=== PATIENT | female | born 1990 | race American Indian/Alaskan Native ===

== ENCOUNTER 2016-12-18 15:36 | Emergency (ER) | payer SELFPAY ==
[2016-12-18 17:21] LABS: Bilirubin,Urine NEG (Negative); Blood,Urine MOD (Negative); Ketones,Urine NEG (Negative); Leukocyte Esterase,Urine MOD (Negative); Mucus,Urine FEW /HPF; Nitrite,Urine NEG (Negative); Urobilinogen,Urine < 2.0 mg/dL (<2.0)
--- NOTE | 2016-12-18 19:49 | Emergency Department Report ---
HPI - General Chief Complaint: Urogenital-Female Time Seen by Provider: 12/18/16 19:21 - HPI HPI: 26-year-old female presents today stating that she has had UTI like symptoms 4 days. Describes her symptoms as increased urinary frequency and urgency, painful urination and blood in urine. Denies any vaginal discharge or vaginal bleeding. Positive for history of UTI, but no recent infection. Positive for minimal back pain. Denies fever, chills, nausea, vomiting, chest pain, shortness of breath, abdominal pain. Patient has taken a couple doses of pyridium without symptomatic relief. ED Past Medical Hx - Past Medical History Hx Diabetes: Yes Additional medical history: ANEMIA - Surgical History Additional Surgical History: X 3 - Social History Smoking Status: Current Every Day Smoker Substance Use Type: None - Medications Home Medications: Home Medications Medication Instructions Recorded Confirmed Last Taken Type Phenazopyridine [Pyridium] 200 mg PO BID #4 tab 12/18/16 Unknown Rx Sulfamethoxazole/Trimethoprim 1 each PO BID #10 tablet 12/18/16 Unknown Rx [Bactrim DS TAB] ED Review of Systems ROS: Stated complaint: UTI Other details as noted in HPI Constitutional: denies: chills, fever, malaise Eyes: denies: eye pain ENT: denies: ear pain, throat pain, congestion Respiratory: denies: cough, shortness of breath, wheezing Cardiovascular: denies: chest pain, palpitations Endocrine: no symptoms reported Gastrointestinal: denies: abdominal pain, nausea, vomiting, diarrhea Genitourinary: urgency, dysuria, frequency, hematuria. denies: discharge Musculoskeletal: back pain Neurological: denies: headache, weakness Physical Exam - Physical Exam Vital Signs: Vital Signs 12/18/16 16:36 Temperature 98.5 F Pulse Rate 78 Respiratory 17 Rate Blood Pressure 137/96 O2 Sat by Pulse 100 Oximetry Physical Exam: GENERAL: The patient is well-developed and well-nourished. Patient is in NAD. HEAD: Normocephalic. Atraumatic. CHEST/LUNGS: Clear to auscultation throughout. HEART/CARDIOVASCULAR: Regular rate and rhythm. No murmurs, rubs or gallops. ABDOMEN: Abdomen is soft. Mild tenderness to palpation in suprapubic region. Bowel sounds normoactive. No guarding or rebound tenderness. I asked if her left-sided CVA tenderness. EXTREMITIES: Peripheral pulses intact. Capillary refill less than 2 seconds. NEURO: Alert and oriented x 3. Normal gait. ED Course Vital Signs 12/18/16 16:36 Temperature 98.5 F Pulse Rate 78 Respiratory 17 Rate Blood Pressure 137/96 O2 Sat by Pulse 100 Oximetry ED Medical Decision Making - Lab Data Vital Signs 12/18/16 16:36 Temperature 98.5 F Pulse Rate 78 Respiratory 17 Rate Blood Pressure 137/96 O2 Sat by Pulse 100 Oximetry Lab Results 12/18/16 12/18/16 Range/Units 16:42 Unknown POC Glucose 97 (70-105) Urine Color Yellow (Yellow) Urine Turbidity Slightly-cloudy (Clear) Urine pH 7.0 (5.0-7.0) Ur Specific [place] 1.024 (1.003-1.030) Urine Protein 100 mg/dl (Negative) mg/dL Urine Glucose (UA) Neg (Negative) mg/dL Urine Ketones Neg (Negative) mg/dL Urine Blood Mod (Negative) Urine Nitrite Neg (Negative) Ur Reducing Substances Not Reportable Urine Bilirubin Neg (Negative) Urine Ictotest Not Reportable Urine Urobilinogen < 2.0 (<2.0) mg/dL Ur Leukocyte Esterase Mod (Negative) Urine WBC (Auto) 2.0 (0.0-6.0) /HPF Urine RBC (Auto) 71.0 (0.0-6.0) /HPF U Epithel Cells (Auto) 5.0 (0-13.0) /HPF Urine Mucus Few /HPF Urine HCG, Qual Negative (Negative) - Medical Decision Making 26-year-old female presents today complaining of painful urination, increased urinary frequency or urgency and blood in her urine 4 days. Her urinalysis reveals moderate blood and leukocyte esterase. Her urine test is negative. Patient is in no acute distress at this time. She will be discharged home and is encouraged to follow up with a primary care provider. She will be sent home on Bactrim and is encouraged to return to the emergency room for any worsening symptoms. Critical care attestation.: If time is entered above; I have spent that time in minutes in the direct care of this critically ill patient, excluding procedure time. ED Disposition Clinical Impression: UTI (urinary tract infection) Qualifiers: Urinary tract infection type: acute cystitis Hematuria presence: with hematuria Qualified Code(s): N30.01 - Acute cystitis with hematuria Disposition: DISCHARGED TO HOME OR SELFCARE Is pt being admited?: No Does the pt Need Aspirin: No Condition: Stable Instructions: Urinary Tract Infection in Women (ED) Additional Instructions: Follow-up with primary care provider. Return to the emergency department if symptoms worsen. Prescriptions: Phenazopyridine [Pyridium] 200 mg PO BID #4 tab Sulfamethoxazole/Trimethoprim [Bactrim DS TAB] 1 each PO BID #10 tablet Referrals: SYMONE VALLEJO MD [Primary Care Provider] - 3-5 Days [facility] [Outside] - 3-5 Days DEAN RODRIGUEZ MD [Staff Physician] - 3-5 Days Forms: Work/School Release Form(ED) Time of Disposition: 19:51
[2016-12-18 20:19] VITALS: BP 154/93
== END 2016-12-18 20:06 | disposition home or self-care (01) ==
LOC: ED 15:36
DX: N30.01 Acute cystitis with hematuria (principal); E11.9 Type 2 diabetes mellitus without complications; F17.200 Nicotine dependence, unspecified, uncomplicated
CPT/HCPCS: 81001; 81025; 82962; 99282